=== PATIENT | female | born 1945 | race Caucasian/White ===

== ENCOUNTER 2017-11-02 15:17 | Emergency (ER) | payer MEDICARE ==
[~2017-11-02] VITALS: Ht 165.1 cm; Wt 79.4 kg
[~2017-11-02 15:17] MED LIST: ANTARA130 MG PO; AVALIDE PO; COMBIVENT RESPIM4 GM; LIPITOR20 MG PO; SYNTHROID88 MCG PO; [UNRECOGNIZED DRUG - MIXTURE] PO
[2017-11-02 17:40] VITALS: BP 150/66
== END 2017-11-02 17:46 | disposition home or self-care (01) ==
LOC: FSED 15:17
DX: S01.81XA Laceration without foreign body of other part of head, initial encounter (principal); S63.501A Unspecified sprain of right wrist, initial encounter; W01.0XXA Fall on same level from slipping, tripping and stumbling without subsequent striking against object, initial encounter; Y93.01 Activity, walking, marching and hiking; Y92.480 Sidewalk as the place of occurrence of the external cause
CPT/HCPCS: 70450; 70486; 72125; 99284

== ENCOUNTER → 2020-03-14 | Outpatient (CLI) | payer MEDICARE ==
--- NOTE | 2020-03-14 12:03 | Diagnostic Imaging Report ---
Renal ultrasound Comparison: None Clinical History: Chronic kidney disease Technique: Sonographic evaluation of the kidneys was performed. Multiple images were submitted for interpretation, using a low-frequency curved transducer. Right kidney: The kidney measures 9.6 x 5 x 4.8 cm. The cortical echogenicity is within normal limits. The cortex measures 1.5 cm. There is no evidence of a focal mass. There is no evidence of hydronephrosis. There is no evidence of a shadowing stone. There is no evidence of a cyst. There is no evidence of a perinephric fluid collection. Flow is visualized to the right kidney. Left kidney: The kidney measures 9.0 x 4.7 x 4.8 cm. The cortical echogenicity is within normal limits. The cortex measures 1.3 cm. There is no evidence of a focal mass. There is no evidence of hydronephrosis. There is no evidence of a shadowing stone. There is no evidence of a cyst. There is no evidence of a perinephric fluid collection. Flow is visualized to the left kidney. Survey images of the bladder demonstrate no abnormality. Prevoid bladder volume is 2 60 cc. The patient emptied the bladder completely. Impression: Unremarkable bilateral renal ultrasound. Consider medical renal disease. Signed by: Tunde Ribeiro MD on 03/14/2020 11:59 AM
== END ==
LOC: US 09:41
PROVIDERS: ATTEND Internal Medicine Nephrology
DX: N18.31 Chronic kidney disease, stage 3a (principal)
CPT/HCPCS: 76770; 76857

== ENCOUNTER → 2024-08-20 | Outpatient (REF) | payer MEDICARE ==
[~2024-08-20] MED LIST changes: +CEFUROXIME250 MG PO
== END ==
LOC: RAD 13:40
PROVIDERS: ATTEND Internal Medicine
DX: M25.552 Pain in left hip (principal)

== ENCOUNTER → 2025-02-08 | Outpatient (RCR) | payer MEDICARE | LOC: PT 01-24 08:37 | PROVIDERS: ATTEND Specialist | DX: M16.11 Unilateral primary osteoarthritis, right hip (principal) ==